=== PATIENT | male | born 1995 | race African-American/Black ===

== ENCOUNTER 2017-06-21 09:39 | Emergency (ER) | payer SELFPAY ==
[2017-06-21] MEDS ORDERED: Amoxicillin/Potassium Clav 875 MG TAB ONE (11:10)
== END 2017-06-21 11:26 | disposition home or self-care (01) ==
LOC: ERS 09:39
DX: S01.452A Open bite of left cheek and temporomandibular area, initial encounter (principal); W54.0XXA Bitten by dog, initial encounter
CPT/HCPCS: 99283

== ENCOUNTER 2017-10-19 13:47 | Emergency (ER) | payer SELFPAY ==
[2017-10-19 14:37] LABS: Bilirubin Negative (Negative); Blood, Urine Negative (Negative); Clarity CLOUDY (Clear); Glucose, Urine (Dipstick) Negative (Negative); Leukocyte Large (Negative); Nitrite Negative (Negative); Protein, Urine (Dipstick) Negative (Neg-Trace); Specific Gravity, Urine 1.023 (1.002-1.036)
[2017-10-19 14:39] LABS: Bacteria/HPF None Seen HPF (None Seen); Hyaline Casts/LPF 0-3 HYALINE CAST LPF (0-3 Hyaline); Pathc Cast-AUWi Flag 0.14 (0-2.49); RBC/HPF 0-3 HPF (0-3); Squamous Epithelial None Seen HPF (0-3)
[2017-10-19] MEDS ORDERED: Azithromycin 250 MG TAB ONE (14:44)
[2017-10-19] MEDS ORDERED: Lidocaine 1% PF 5 ML VIAL ONE ×2 (14:45→14:46)
[2017-10-19] MEDS ORDERED: cefTRIAXone\\ROCEPHIN 250 MG VIAL ONE (14:45)
[2017-10-22 02:08] LABS: Chlamydia by PCR Not Detected (NotDetected); GC by PCR DETECTED (NotDetected)
== END 2017-10-19 15:23 | disposition home or self-care (01) ==
LOC: ERS 13:47
DX: R30.0 Dysuria (principal); R36.9 Urethral discharge, unspecified; R59.0 Localized enlarged lymph nodes
CPT/HCPCS: 81003; 81015; 87086; 87491; 87591; 96372; J0696; J2001

== ENCOUNTER 2018-01-23 17:23 | Emergency (ER) | payer SELFPAY ==
--- NOTE | 2018-01-23 18:41 | RAD ---
LUMBAR SPINE THREE VIEWS: 01/23/18 HISTORY: Low back pain. FINDINGS: There are five lumbar type vertebrae. Pedicles are intact. Vertebral body height and alignment are ma intained. Incomplete posterior fusion of the first sacral segment. Unusual shape of the right L1 diamond sverse process on the frontal view. IMPRESSION: No acute osseous abnormalities are demonstrated. POS: [facility]
[2018-01-23] MEDS ORDERED: Ketorolac Tromethamine 60 MG/2 ML VIAL ONE (18:50)
== END 2018-01-23 19:16 | disposition home or self-care (01) ==
LOC: ERS 17:23
DX: S39.012A Strain of muscle, fascia and tendon of lower back, initial encounter (principal); X50.0XXA Overexertion from strenuous movement or load, initial encounter; Y92.89 Other specified places as the place of occurrence of the external cause; Y99.0 Civilian activity done for income or pay
CPT/HCPCS: 72100; 96372; J1885

== ENCOUNTER 2022-04-09 08:24 | Emergency (ER) | payer SELFPAY ==
[2022-04-09] MEDS ORDERED: cefTRIAXone\\ROCEPHIN 500 MG VIAL ONE (08:45)
[2022-04-09] MEDS ORDERED: Azithromycin 250 MG TAB ONE ×2 (08:45→08:46)
[2022-04-09] MEDS ORDERED: Lidocaine 1% MPF 2 ML VIAL ONE (08:48)
[2022-04-09 09:51] LABS: Bacteria/HPF None Seen HPF (None Seen); Bilirubin Negative (Negative); Blood, Urine Negative (Negative); Clarity Clear (Clear); Glucose, Urine (Dipstick) Normal (Negative); Ketone, Urine Negative (Negative); Leukocyte 250 Leu/uL (Negative); Nitrite Negative (Negative); Protein, Urine (Dipstick) 30 mg/dL (Neg-Trace); Squamous Epithelial 0-3 HPF (0-3); Urobilinogen 3 mg/dL (Less than 2); WBC/HPF Greater than 50 HPF (0-3); pH, Urine 8.5 (5.0-9.0)
[2022-04-09 17:04] LABS: Chlam.trachomatis by PCR,Urine DETECTED (NotDetected)
== END 2022-04-09 09:30 | disposition home or self-care (01) ==
LOC: ERS 08:24
DX: A54.9 Gonococcal infection, unspecified (principal)
CPT/HCPCS: 81003; 81015; 87086; 87491; 87591; 96372; 99283; J0696

== ENCOUNTER 2022-11-14 19:58 | Emergency (ER) | payer SELFPAY ==
[2022-11-14] MEDS ORDERED: Lidocaine 1% PF 5 ML VIAL ONE (22:41)
== END 2022-11-14 23:11 | disposition home or self-care (01) ==
LOC: ERS 19:58
DX: S61.512A Laceration without foreign body of left wrist, initial encounter (principal); W26.0XXA Contact with knife, initial encounter
CPT/HCPCS: 12001

== ENCOUNTER 2023-01-19 17:46 | Emergency (ER) | payer SELFPAY ==
[2023-01-19] MEDS ORDERED: Ketorolac Tromethamine 30 MG/ML VIAL ONE (19:48)
== END 2023-01-19 20:20 | disposition home or self-care (01) ==
LOC: ERS 17:46
DX: M54.6 Pain in thoracic spine (principal)
CPT/HCPCS: 96372; 99283; J1885

== ENCOUNTER 2024-06-06 14:46 | Emergency (ER) | payer SELFPAY ==
[2024-06-06] MEDS ORDERED: metroNIDAZOLE 250 MG TAB ONE (15:22)
[2024-06-06] MEDS ORDERED: Ondansetron ODT 4 MG TAB ONE (15:23)
[2024-06-06 15:26] LABS: Bilirubin Negative (Negative); Blood, Urine Negative (Negative); Clarity Clear (Clear); Glucose, Urine (Dipstick) Normal (Negative); Ketone, Urine Negative (Negative); Leukocyte Negative Leu/uL (Negative); Nitrite Negative (Negative); Protein, Urine (Dipstick) Negative (Neg-Trace); RBC/HPF 0-3 HPF (0-3); Specific Gravity, Urine 1.026 (1.002-1.036); Squamous Epithelial 0-3 HPF (0-3); Urobilinogen Normal mg/dL (Less than 2); WBC/HPF 0-3 HPF (0-3); pH, Urine 7.5 (5.0-9.0)
[2024-06-06 15:47] LABS: Bacteria/HPF Rare-Few HPF (None Seen); Trichomonas/HPF Rare HPF (None Seen)
[2024-06-07 01:07] LABS: Chlam.trachomatis by PCR,Urine Not Detected (NotDetected); GC N.gonorrhoeae PCR,UrineVOID Not Detected (NotDetected)
== END 2024-06-06 15:28 | disposition home or self-care (01) ==
LOC: ERS 14:46
DX: Z20.2 Contact with and (suspected) exposure to infections with a predominantly sexual mode of transmission (principal)
CPT/HCPCS: 81001; 87491; 87591; 99283; Q0162